=== PATIENT | female | born 1980 ===

== ENCOUNTER 2023-08-23 09:48 | Day surgery (SDC) | payer OTHER ==
[2023-08-20 09:43] LABS: URINE APPEARANCE Clear; URINE BILIRRUBIN Negative (NEGATIVE); URINE BLOOD Negative; URINE COLOR Yellow; URINE GLUCOSE Negative (NEGATIVE); URINE LEUKOCYTE Negative; URINE NITRATE Negative; URINE PROTEIN Negative (NEGATIVE); URINE UROBILINOGEN 0.2 E.U./dl
[2023-08-20 09:48] LABS: HEMATOCRIT 43.4 % (36.0-45.00); MEAN CELL VOLUME 84.7 fL (80.00-100.00); MEAN CORPUSCULAR HEMOGLOBIN 29.2 pg (27.00-32.0); MEAN CORPUSCULAR HGB CONC 34.5 g/dl (32.0-36.0); PLATELET COUNT 322 K/uL (150-450); RED BLOOD COUNT 5.13 M/uL (4.00-6.00); RED CELL DISTRIBUTION WIDTH 13.2 % (11.5-14.5)
[2023-08-20 09:48] LABS: URINE BACTERIA 738.1 uL (0.0-1933); URINE EPITHELIAL CELLS 13.2 uL (0.0-38.8); URINE WBC 18.2 uL (0.0-23.2)
[2023-08-20 10:23] LABS: URINE RBC 1.2 uL (0.0-20.8)
[2023-08-20 10:45] LABS: INR < 0.93; PARTIAL THROMBOPLASTIN TIME 25.9 SECONDS (22.0-34.0); PROTHROMBIN TIME 9.8 SECONDS (9.0-11.5)
[2023-08-20 10:48] LABS: BILIRUBIN TOTAL 1.03 mg/dL (0.3-1.2); CALCIUM 9.6 mg/dL (8.5-10.1); CREATININE SERUM 0.78 mg/dL (0.55-1.02); GFR 80.23; POTASSIUM 3.62 mEq/L (3.5-5.1)
[~2023-08-23 09:48] MED LIST: AMLODI PO; ZIAC 2.5-6.251 EACH PO
[2023-08-23] MEDS ORDERED: TRAMADOL HCL50 MG PO (11:14)
[2023-08-23] MEDS ORDERED: KETO10TA2 PO (11:14)
[2023-08-23] MEDS ORDERED: MIRALAX17 GM PO (11:14)
[2023-08-23] MEDS ORDERED: TYLENOL ARTHRI650 MG PO (11:14)
[2023-08-23] MEDS ORDERED: NEURONTIN300 MG PO (15:51)
== END 2023-08-23 18:50 | disposition home or self-care (01) ==
LOC: CIR.AMB 09:48
PROVIDERS: ATTEND Surgery
DX: K40.90 Unilateral inguinal hernia, without obstruction or gangrene, not specified as recurrent (principal); K42.9 Umbilical hernia without obstruction or gangrene; D21.5 Benign neoplasm of connective and other soft tissue of pelvis; D48.7 Neoplasm of uncertain behavior of other specified sites; N83.291 Other ovarian cyst, right side; R19.09 Other intra-abdominal and pelvic swelling, mass and lump; I10 Essential (primary) hypertension; Z20.822 Contact with and (suspected) exposure to COVID-19
CPT/HCPCS: 49650; 49591; 58661; C1781